=== PATIENT | female | born 1950 ===

== ENCOUNTER 2023-11-10 07:30 | Inpatient (IN) | payer OTHER ==
[2023-11-10] MEDS ORDERED: [UNRECOGNIZED DRUG - OTHER] (08:00)
[2023-11-10] MEDS ORDERED: [UNRECOGNIZED DRUG - OTHER] (08:01)
[2023-11-10] MEDS ORDERED: TRAMADOL HCL50 MG (08:01)
[2023-11-10] MEDS ORDERED: NORVASC5 MG (08:01)
[2023-11-10] MEDS ORDERED: [UNRECOGNIZED DRUG - OTHER] (08:02)
[2023-11-10] MEDS ORDERED: LOSARTAN POTAS100 MG (08:02)
[2023-11-10] MEDS ORDERED: ROSUVASTATIN CAL5 MG (08:03)
[2023-11-10] MEDS ORDERED: OMEPRAZOLE MAGN20 MG (08:05)
[2023-11-10 09:31] LABS: HEMATOCRIT 42.5 % (36.0-45.00); HEMOGLOBIN 14.1 g/dL (12.0-15.00); MEAN CORPUSCULAR HEMOGLOBIN 28.9 pg (27.00-32.0); MEAN CORPUSCULAR HGB CONC 33.2 g/dl (32.0-36.0); PLATELET COUNT 351 K/uL (150-450); RED BLOOD COUNT 4.88 M/uL (4.00-6.00); RED CELL DISTRIBUTION WIDTH 15.9 % (11.5-14.5)
[2023-11-10 09:32] LABS: URINE APPEARANCE Clear; URINE BILIRRUBIN Negative (NEGATIVE); URINE BLOOD Negative; URINE COLOR Yellow; URINE GLUCOSE Negative (NEGATIVE); URINE LEUKOCYTE Negative; URINE NITRATE Negative; URINE PROTEIN Negative (NEGATIVE); URINE UROBILINOGEN 0.2 E.U./dl
[2023-11-10 09:34] LABS: URINE BACTERIA 104.5 uL (0.0-1933); URINE EPITHELIAL CELLS 8.8 uL (0.0-38.8); URINE WBC 3.3 uL (0.0-23.2)
[2023-11-10 09:51] LABS: INR 0.98; PARTIAL THROMBOPLASTIN TIME 27.6 SECONDS (22.0-34.0); PROTHROMBIN TIME 10.3 SECONDS (9.0-11.5)
[2023-11-10 10:10] LABS: ALBUMIN 4.4 gm/dL (3.4-5.0); BILIRUBIN TOTAL 0.56 mg/dL (0.3-1.2); CALCIUM 10.2 mg/dL (8.5-10.1); CREATININE SERUM 0.86 mg/dL (0.55-1.02); GFR 65.23; GLOBULINA 3.8 G/DL (2.4-3.5); POTASSIUM 4.7 mEq/L (3.5-5.1); TOTAL PROTEIN 8.2 gm/dL (6.4-8.2)
[2023-11-17] MEDS ORDERED: CEFAZOLIN SODIUM 1,000 MG VIAL ONE (08:26)
[2023-11-17] MEDS ORDERED: TRANEXAMIC ACID 100MG/1ML (1000MG) AMPUL IV ONE ×4 (08:26→10:00)
[2023-11-17] MEDS ORDERED: KETOROLAC TROMETHAMINE 60 MG VIAL IM ONE (09:12)
[2023-11-17] MEDS ORDERED: POVIDONE-IODINE 3 EA MED..SWAB TOP ONE (09:42)
[2023-11-17] MEDS ORDERED: CEFAZOLIN SODIUM 1,000 MG VIAL IV ONE (10:00)
[2023-11-17] MEDS ORDERED: MORPHINE SULFATE 4 MG/ML VIAL IV ONE (10:00)
[2023-11-17] MEDS ORDERED: PRAMIPEXOLE D0.75 MG (10:23)
[2023-11-17] MEDS ORDERED: OMEPRAZOLE20 MG (10:23)
[2023-11-17] MEDS ORDERED: FENOFIBRATE145 MG (10:23)
[2023-11-17] MEDS ORDERED: CETIRIZINE HCL10 MG (10:23)
[2023-11-17] MEDS ORDERED: GABAPENTIN600 MG (10:23)
[2023-11-17] MEDS ORDERED: SODIUM CHLORIDE 0.45 % 1,000 ML IV SCH (10:45)
[2023-11-17] MEDS ORDERED: ONDANSETRON HCL 2 MG/ML VIAL IV PRN (10:45)
[2023-11-17] MEDS ORDERED: OxyCODONE HCL 5 MG TABLET (ROXICODONE) PO PRN (10:45)
[2023-11-17] MEDS ORDERED: MORPHINE SULFATE 4 MG/ML CARTRIDGE IV PRN (10:45)
[2023-11-17] MEDS ORDERED: ACETAMINOPHEN 500 MG GEL..CAP PO SCH (12:00)
[2023-11-17] MEDS ORDERED: hydrALAZINE HCL 20 MG VIAL IV PRN (15:00)
[2023-11-17] MEDS ORDERED: GABAPENTIN 300 MG CAPSULE PO SCH (17:00)
[2023-11-17] MEDS ORDERED: CEFAZOLIN SODIUM 1,000 MG VIAL IV SCH (17:00)
[2023-11-18 05:37] LABS: HEMATOCRIT 36.8 % (36.0-45.00); HEMOGLOBIN 12.2 g/dL (12.0-15.00); MEAN CELL VOLUME 88.8 fL (80.00-100.00); MEAN CORPUSCULAR HEMOGLOBIN 29.4 pg (27.00-32.0); MEAN CORPUSCULAR HGB CONC 33.1 g/dl (32.0-36.0); PLATELET COUNT 281 K/uL (150-450); RED BLOOD COUNT 4.15 M/uL (4.00-6.00); RED CELL DISTRIBUTION WIDTH 15.4 % (11.5-14.5)
[2023-11-18] MEDS ORDERED: PERCOCET 5-3251 EACH PO (07:48)
[2023-11-18] MEDS ORDERED: ELIQUIS2.5 MG PO (07:48)
[2023-11-18] MEDS ORDERED: DUI500 PO (07:48)
[2023-11-18] MEDS ORDERED: LOSARTAN POTASSIUM 100 MG TABLET PO SCH (09:00)
[2023-11-18] MEDS ORDERED: SENNOSIDES 1 TAB TABLET PO SCH (09:00)
[2023-11-18] MEDS ORDERED: APIXABAN 2.5 MG TABLET PO SCH (09:00)
[2023-11-18] MEDS ORDERED: AMLODIPINE BESYLATE 5 MG TABLET PO SCH (09:00)
[2023-11-18] MEDS ORDERED: VITAMIN B COMPLEX 1 EACH PO SCH (13:21)
[2023-11-18] MEDS ORDERED: Cyanocobalamin/Mecobalamin 1 TAB.SL SL SCH (13:22)
[2023-11-19 05:57] LABS: HEMOGLOBIN 11.9 g/dL (12.0-15.00); MEAN CELL VOLUME 88.9 fL (80.00-100.00); MEAN CORPUSCULAR HEMOGLOBIN 29.2 pg (27.00-32.0); MEAN CORPUSCULAR HGB CONC 32.9 g/dl (32.0-36.0); PLATELET COUNT 278 K/uL (150-450); RED BLOOD COUNT 4.06 M/uL (4.00-6.00); RED CELL DISTRIBUTION WIDTH 15.6 % (11.5-14.5)
[2023-11-19] MEDS ORDERED: IRON FUM,PS/FOLIC ACID/VITC/B3 1 CAP CAPSULE PO SCH (09:00)
[2023-11-19] MEDS ORDERED: OxyCODONE HCL/APAP UD (PERCOCET) PO ONE (18:30)
== END 2023-11-19 21:15 | DRG 470 ==
LOC: SURG 11-17 05:39 → O/R 11-17 05:39 → SURH 11-17 07:30 → SURG 11-17 10:51
PROVIDERS: ADMIT Orthopaedic Surgery; ATTEND Orthopaedic Surgery
PROC: 0MNP0ZZ Release Left Knee Bursa and Ligament, Open Approach (ICD-10-PCS; 2023-11-17)
PROC: 0SRD0J9 Replacement of Left Knee Joint with Synthetic Substitute, Cemented, Open Approach (ICD-10-PCS; principal; 2023-11-17 09:45)
DX: M17.12 Unilateral primary osteoarthritis, left knee (principal); D62 Acute posthemorrhagic anemia; M22.12 Recurrent subluxation of patella, left knee